=== PATIENT | female | born 1930 | race Caucasian/White ===

== ENCOUNTER → 2016-12-27 | Outpatient (CLI) | payer MEDICARE, BC ==
[~2016-12-27] MED LIST: AMOXICILLIN 8751 TAB PO; ASPIR-LOW81 MG PO; ASPIRIN E.C. 8181 MG PO; ATIVAN 1MG T1 MG/TAB PO; ATIVAN0.5 MG PO; CAPOTEN50 MG PO; CEPHALEXIN250 M1 PO; CITRUCEL PACKET1 PKT PO; COLACE 100100 MG/CAP PO; DARVOCET A500 51 TAB PO; DULCOLAX S10 MG/SUPP RC; EFFEXOR37.5 MG PO; LEVOTHYROXIN0.088 MG PO; LOPERAMIDE2 MG PO; MILK OF MA400 MG/51 PO; MULTIPLE VITAMI1 CAP PO; MYLANTA 360 ML360 ML PO; SENNA8.6 MG PO; SILVADENE CREAM1 TU TP; SYNTHROID0.1 MG PO; TYLENOL 325MG325 MG PO; UNABLE; ZOCOR 10MG10 MG PO; ZYPREXA 5MG5 MG PO
== END ==
LOC: ZCOL.LAB 21:07
DX: E03.9 Hypothyroidism, unspecified (principal)

== ENCOUNTER → 2017-12-19 | Outpatient (CLI) | payer MEDICARE, BC | LOC: ZCOL.LAB 11:17 | DX: E03.9 Hypothyroidism, unspecified (principal) ==